=== PATIENT | male | born 1960 | race African-American/Black ===

== ENCOUNTER 2020-12-17 05:16 | Emergency (ER) | payer OTHER ==
[~2020-12-17] VITALS: Ht 177.8 cm; Wt 78.0 kg
[2020-12-17] MEDS ORDERED: IBUPROFEN 600MG TABLET PO ONE (06:30)
[2020-12-17] MEDS ORDERED: LORAZEPAM 0.5MG TABLET PO ONE (06:30)
[2020-12-17] MEDS ORDERED: IBUP-2029 MT (07:20)
[2020-12-17 09:24] VITALS: BP 125/76
== END 2020-12-17 09:25 | disposition home or self-care (01) ==
LOC: ER 05:16
DX: S90.02XA Contusion of left ankle, initial encounter (principal); V03.99XA Pedestrian with other conveyance injured in collision with car, pick-up truck or van, unspecified whether traffic or nontraffic accident, initial encounter; Y93.89 Activity, other specified; Y92.89 Other specified places as the place of occurrence of the external cause; Y99.8 Other external cause status
CPT/HCPCS: 73630; 99283; Z7610